=== PATIENT | male | born 1965 | race Caucasian/White ===

== ENCOUNTER 2021-08-05 00:36 | Observation (INO) | payer OTHER, SELFPAY ==
[2021-08-05] VITALS (17 sets, daily range): BP systolic 119–163; BP diastolic 69–83; PULSE 63–89; RESP 16–22; TEMP 36.2–37; O2SAT 95–100; BMI 38.4
--- NOTE | 2021-08-05 | ECHO_ITS ---
Patient Info Name: Mike Patterson Age: 55 years : 1965 Gender: Male Ht: 73 in Wt: 291 lbs BSA: 2.66 m2 HR: 62 bpm BP: 163 / 81 mmHg Heart Rhythm: Sinus Rhythm Technical Quality: Fair Exam Date: 08/05/2021 4:19 PM Exam Location: [facility] Pulmonary Exam Room: [facility] Patient Status: Inpatient Admit Date: 08/05/2021 Staff Ordering Physician: Tadeo Graf MD Wireless Construction Manager: Laurie Cabrera RDCS Attending Provider: Gilbert Moraes MD Exam Type: CA echo doppler color flow Study Info Indications - AFIB Complete two-dimensional, color flow and Doppler transthoracic echocardiogram is performed. Summary 1. Complete two-dimensional, color flow and Doppler transthoracic echocardiogram is performed. 2. Left ventricular systolic function is low normal, estimated at 50-55%. 3. Left ventricular chamber dimension is normal. 4. There is mildly increased left ventricular wall thickness. 5. The left ventricular diastolic function is normal. 6. Left atrial chamber dimension is mildly enlarged. 7. There is mild tricuspid valve regurgitation. 8. There is mild pulmonic regurgitation. Left Ventricle Left ventricular systolic function is low normal, estimated at 50-55%. Left ventricular chamber dimension is normal. There is mildly increased left ventricular wall thickness. The left ventricular diastolic function is normal. Right Ventricle Right ventricular chamber dimension is normal. Right ventricular systolic function is normal. Left Atria Left atrial chamber dimension is mildly enlarged. Right Atria Right atrial chamber dimension is normal. Atrial Septum Intact interatrial septum visualized by color flow imaging. Aortic Valve The aortic valve is trileaflet. There is mild aortic valve sclerosis. There is no aortic valve stenosis. There is trace aortic valve regurgitation. Pulmonic Valve The pulmonic valve is normal. There is no pulmonic valve stenosis. There is mild pulmonic regurgitation. Mitral Valve The mitral valve has normal leaflets. There is no mitral valve stenosis. There is trace mitral valve regurgitation. Tricuspid Valve The tricuspid valve leaflets are normal. There is no significant tricuspid valve stenosis. There is mild tricuspid valve regurgitation. No pulmonary hypertension, estimated pulmonary arterial systolic pressure is 28 mmHg. Pericardium/Pleural The pericardium appears normal. There is no pericardial effusion. Inferior Vena Cava Normal inferior vena cava with >50% collapse upon inspiration consistent with normal right atrial pressure, 10 mmHg. Aorta The aortic root size at the sinus of Valsalva is normal. Left Ventricular Outflow Tract Name Value Normal LVOT 2D LVOT Diameter 2.1 cm LVOT Doppler LVOT Peak Gradient 7 mmHg LVOT Mean Gradient 4 mmHg LVOT VTI 23 cm LVOT VTI/AV VTI Ratio 0.9 LVOT Stroke Volume 82 ml LVOT CO 19.5 l/min
--- NOTE | ~2021-08-05 | NM_ITS ---
EXAMINATION: NM ortega stress w perfusion DATE: 08/06/2021 10:06 INDICATION: Chest pain. TECHNIQUE: Rest images were obtained following intravenous administration of 10.1 mCi Tc99m tetrofosm in (Myoview). The patient was infused intravenously with Lexiscan (regadenoson). Then, 32.7 mCi Tc99m tetrofosmin (Myoview) was administered intravenously, and supine and prone stress images were obtain ed. Data was reconstructed into short axis and horizontal and vertical long axis SPECT images. Gated SPECT images were also obtained. COMPARISON: Chest CT 08/05/2021 FINDINGS: There is a small, mild, reversible perfusion defect involving apical anterior segment of le ft ventricle, consistent with ischemia. There is apical hypokinesis. Left ventricular ejection frac tion measures 46%. IMPRESSION: 1. Small area of mild ischemia involving apical anterior segment of left ventricle. 2. Apical hypokinesis with left ventricular ejection fraction measuring 46%. Reviewed, dictated and finalized at location A. MATION CONTROLS ENGINEER IMPRESSION: 1. Small area of mild ischemia involving apical anterior segment of left ventri iza. 2. Apical hypokinesis with left ventricular ejection fraction measuring 46%.
--- NOTE | ~2021-08-05 | XR_ITS ---
XR chest 2V DATE: 08/05/2021 01:17 INDICATION: Chest tightness, shortness of breath, palpitations TECHNIQUE: PA and lateral views COMPARISON: 01/10/2016 2 view chest FINDINGS: Normal heart size. No hilar or mediastinal enlargement. No pulmonary infiltrate or consolid ation, pleural effusion or pulmonary vascular congestion or pneumothorax. There is mild thoracic scoliosis. There is degenerative spurring of the thoracic spine. IMPRESSION: No active cardiopulmonary disease Reviewed, dictated and finalized at location A. ENT DEVELOPMENT DEAN
--- NOTE | ~2021-08-05 | CT_ITS ---
EXAMINATION: CTA chest PE protocol DATE: 08/05/2021 11:39 INDICATION: Chest pain. TECHNIQUE: Computed tomography angiography (CTA) of the chest was performed with 100 mL Omnipaque-350 intravenous contrast timed to evaluate the pulmonary arteries. Coronal maximum intensity projection 3D-reconstructions were created by the technologist. Automated exposure control and iterative reconst ruction technique were employed. The dose-length product was 929.24 mGy-cm. COMPARISON: None. FINDINGS: The lungs demonstrate mild atelectasis. No pleural effusion. The heart size is normal. No p ericardial effusion. The gallbladder is distended. There is no pulmonary embolus. There is mild thora cic spondylosis. IMPRESSION: 1. No pulmonary embolus. 2. Gallbladder distention, which may be secondary to fasting. Correlate with physical exam to exclude acute cholecystitis. Reviewed, dictated and finalized at location A. ERATIVE EXTENSION AGENT IMPRESSION: 1. No pulmonary embolus. 2. Gallbladder distention, which may be secondary to fasting. Correlate with ph ysical exam to exclude acute cholecystitis.
--- NOTE | ~2021-08-05 | US_ITS ---
EXAMINATION: US abdomen limited EXAM DATE: 08/06/2021 10:08 INDICATION: Distended gallbladder. TECHNIQUE: Multiple grayscale and Doppler images of the abdomen right upper quadrant were obtained (b y a technologist who performed the scan) and subsequently reviewed. Correlation is made to CT pulmona ry scan from yesterday. FINDINGS: The pancreatic head and body are normal in appearance. The pancreatic tail is not visualized. The l iver has normal echogenicity and contour. There are no focal liver lesions identified. There is no evidence of intrahepatic biliary duct dilation. Portal venous flow was seen in the hepatopedal, nor mal direction and has normal Doppler waveform. No right-sided hydronephrosis. Common bile duct measures 5 mm, which is normal. Gallbladder is moderately distended with wall measur ing 3 mm, borderline thickening. There are several gallstones identified. There is no focal region of nondependent echogenicity along the body of the gallbladder wall, could be some adherent gallbladder debris or stone, but can't exclude focal wall thickening. No pericholecystic fluid. Technologist per forming exam reports patient did not demonstrate sonographic Pimentel's sign. Please note that this si gn is less reliable in patients who have received pain medication. IMPRESSION: Distended gallbladder, cholelithiasis. Focal region of gallbladder wall thickening or adh erent debris. No sonographic Pimentel sign to suggest acute cholecystitis. Could consider 6 month follo w-up ultrasound, or if chronic cholecystitis is possibility a HIDA scan. Reviewed, dictated and finalized at location B. UTIVE ADVISOR IMPRESSION: Distended gallbladder, cholelithiasis. Focal region of gallbladder wall thickening or adherent debris. No sonographic Pimentel sign to suggest acute cholecystitis. Could consider 6 month follow-up ultrasound, or if chronic chol ecystitis is possibility a HIDA scan.
--- NOTE | 2021-08-05 00:40 | ECG_ITS ---
Measurements Intervals [place] Rate: 84 P: [place]: 0 QRS: 68 QRSD: 113 T: 44 QT: 343 QTc: 405 Interpretive Statements ATRIAL FIBRILLATION INTRAVENTRICULAR CONDUCTION DELAY DELAYED PRECORDIAL R/S TRANSITION BASELINE ARTIFACT- I, II, III, AVR, AVL, AVF, V1-V6 ABNORMAL ECG Electronically Signed On 08-05-2021 6:11:39 FLEET ADMINISTRATIVE ASSISTANT by Landon Pineda D.O.
[2021-08-05] MEDS: ASPIRIN 81 MG CHEWABLE TABLET 324 MG PO (00:49)
[2021-08-05 00:54] LABS: Basophils Absolute Auto 0.1 K/mm3 (0.0-0.1); Basophils Percent Auto 0.9 % (0.2-1.2); Eosinophils Absolute Auto 0.2 K/mm3 (0-0.3); Eosinophils Percent Auto 2.9 % (0-4.4); Hemoglobin 18.3 g/dL (14.0-18.0); Immature Granulocyte Absolute 0.02 K/mm3 (0.00-0.031); Immature Granulocyte Percent A 0.3 % (0-0.5); Lymphocytes Absolute Auto 2.35 K/mm3 (0.9-3.2); Mean Corpuscular HGB Conc 33.9 g/dl (32-36); Mean Corpuscular Hemoglobin 32.1 pg (26-34); Mean Corpuscular Volume 94.7 fl (80-100); Mean Platelet Volume 10.3 fl (7.4-10.4); Monocytes Absolute Auto 0.7 K/mm3 (0.1-0.6); Monocytes Percent Auto 9.4 % (2.6-8.5); Neutrophils Absolute Auto 4.2 K/mm3 (1.3-6.7); Neutrophils Percent Auto 55.5 % (45.5-73.1); Platelet Count Result 219 k/mm3 (150-375); Red Cell Distribution Width 13.9 % (11.5-14.5); White Blood Count 7.6 K/mm3 (4.5-10.0)
[2021-08-05 01:03] LABS: Prothrombin Time 12.9 Seconds (11.1-14.7)
[2021-08-05 01:04] LABS: Partial Thromboplastin Time 28.1 SECONDS (22.3-36.8)
[2021-08-05 01:08] LABS: Anion Gap 10 mmol/L (8-16); Blood Urea Nitrogen 26 mg/dL (9-20); Calcium 9.1 mg/dL (8.4-10.2); Carbon Dioxide 27 mmol/L (22-30); Chloride 101 mmol/L (98-107); Estimated CRCL calculation 71 ml/min; Estimated Glomerular Filt Rate 48; Glucose 116 mg/dL (65-110); Potassium 4.2 mmol/L (3.4-5.0); Sodium 138 mmol/L (137-145)
[2021-08-05 01:21] LABS: Troponin I < 0.012 ng/mL (0.000-0.034)
--- NOTE | 2021-08-05 01:39 | ED.GENADULT ---
HPI - General Adult General Chief complaint: Chest Pain Stated complaint: heart palpitations, sob Time Seen by Provider: 08/05/21 00:45 History of Present Illness HPI narrative: Patient 55-year-old gentleman who presents the emergency department with chief complaint of palpitations and chest discomfort. The patient reports that he had no prior history of A. fib reports that about 3 days ago he started having some irregular beats of his heart and noticed today that he was having a fast heart rate and also noticed his heart rate was irregular. Patient reports that he was checking his blood pressure and the monitor told him that his heart rate was irregular. Patient states he had some tightness in his chest when this happens reports no prior stress test or cardiac cath. Related Data Home Medications Medication Instructions Recorded Confirmed albuterol sulfate 90 mcg/actuation 2 puff INHALATION Q4H PRN gm 09/12/19 06/19/21 aerosol inhaler fluticasone 100 mcg-salmeterol 50 1 puff INHALATION Q12H 09/12/19 06/19/21 mcg/dose blistr powdr for inhalation Allergies Allergy/AdvReac Type Severity Reaction Status Date / Time No Known Allergies Allergy Mild Verified 08/05/21 00:44 Review of Systems Review of Systems: A 10 system review of systems was completed on the patient and is negative except for what is stated in the HPI. Nursing and ancillary documentation was reviewed. [facility] Past Medical History Medical History Hirschsprung's disease Mixed hyperlipidemia Obesity (BMI 30.0-34.9) Prurigo nodularis Family History Family History Mother Patient's mother is Father Family history of cardiovascular disease Family history of cardiac disorder Family history of kidney disease Social History Social History Alcohol intake: current Exam Narrative: GENERAL: Well-appearing, well-nourished, and in no acute distress. HEAD: Normocephalic, atraumatic. EYES: PERRLA and EOMI. ENT: Nares clear, no rhinorrhea or epistaxis. Mucous membranes moist. NECK: Supple. CHEST: Clear to auscultation. No respiratory distress. HEART: Regular rate and rhythm. No murmur heard. Normal peripheral pulses. ABDOMEN: Soft, nontender, nondistended, normal active bowel sounds. EXTREMITIES: Normal range of motion. No edema. SKIN: Warm, dry, no rash. NEURO: No focal deficits. Alert and oriented x3. PSYCH: Normal mood and affect. Course Course Emergency Course: EKG is A. fib the rate of [address] elevation or ST depression Vital Signs Vital signs: Vital Signs Temperature 36.6 C 08/05/21 00:41 Pulse Rate 81 08/05/21 00:41 Respiratory Rate 18 08/05/21 00:41 Blood Pressure 163/79 H 08/05/21 00:41 Pulse Oximetry 99 08/05/21 00:41 Temperature 36.6 C 08/05/21 00:41 Pulse Rate 81 08/05/21 00:41 Respiratory Rate 18 08/05/21 00:41 Blood Pressure 163/79 H 08/05/21 00:41 Pulse Oximetry 99 08/05/21 00:41 Medical Decision Making Vital Signs Vital Signs: Vital Signs Temperature 36.6 C 08/05/21 00:41 Pulse Rate 81 08/05/21 00:41 Respiratory Rate 18 08/05/21 00:41 Blood Pressure 163/79 H 08/05/21 00:41 Pulse Oximetry 99 08/05/21 00:41 Temperature 36.6 C 08/05/21 00:41 Pulse Rate 81 08/05/21 00:41 Respiratory Rate 18 08/05/21 00:41 Blood Pressure 163/79 H 08/05/21 00:41 Pulse Oximetry 99 08/05/21 00:41 Lab Data Result diagrams: 08/05/21 00:46 08/05/21 00:46 Labs: Lab Results 08/05/21 08/05/21 08/05/21 Range/Units 00:46 00:46 00:46 WBC 7.6 (4.5-10.0) K/mm3 RBC 5.70 (4.6-6.20) M/mm3 Hgb 18.3 H (14.0-18.0) g/dL Hct 54.0 H (42.0-52.0) % MCV 94.7 (80-100) fl MCH 32.1 (26-34) pg MCHC 33.9 (32-3
--- NOTE | 2021-08-05 03:59 | ADMGEN ---
This patient, Mike Patterson, was admitted to IMU Room 205-01. Patient/family oriented to hospital policies and general routines including ID bracelet, bed and alarms, visiting hours, pain management, procedures, bathroom and other care routines, personal items, smoking policy, room service/diet, and visiting hours. Information on how to activate the Rapid Response Team has been discussed. Patient/Family are encouraged to report perceived risks to care and to ask questions if they do not understand what they are told or what they should do.
[2021-08-05 04:15] LABS: Troponin I < 0.012 ng/mL (0.000-0.034)
[2021-08-05 07:43] LABS: Troponin I < 0.012 ng/mL (0.000-0.034)
[2021-08-05] MEDS: ASPIRIN 81 MG CHEWABLE TABLET PO (08:50)
--- NOTE | 2021-08-05 14:58 | PM.IMHP ---
H&P: HPI History of Present Illness Date/Time: PATIENT WAS ADMITTED UNDER OBSERVATION STATUS 08/05/21 14:58 Chief Complaint: Chest pain Narrative: 55yo male with HTN and low testosterone here for chest pain. Patient recently has been exercising using a stair climber and lifting weights. He feels a hard beat when he is using the stair climber but no overt chest pain. He has lost about 30 lb over the past 6-12 months. He does have fluttering feeling in his chest intermittently over the past few years has noted that this is worsened over the past week. He did receive his Pfizer vaccine 2. One week ago and since that time has been feeling fatigued, shortness of breath with the fluttering in his chest. Last evening he became dyspnea on exertion with tachycardia walking back from the bathroom. His blood pressure was read as high but his heart rate was only 77. He developed chest pain localized to a small area in his substernal area that he felt like he pulled something . He has not worked out as for the past week or so. He denies any radiation to the chest pain. No nausea or vomiting. The pain came on at rest. The pain is not positional, palpable or pleuritic. He does not use create teen. He denies any calf pain or leg edema. He has never had a stress test or heart catheterization. He has no heart disease but does have asthma. He uses albuterol intermittently. He was using it every night up until May and now uses adjust as needed and his last use was a week ago. He does not use the Advair frequently but over the past week he has been using it almost daily. He rarely uses the Cialis. He is a lifelong nonsmoker. He does have a family history of early heart disease with his mother dying of a myocardial infarction at age 52 and his father having a heart transplant age 56. He does use testosterone injections once a week. He missed his last weeks dose because of his illness. Remainder review of systems was negative except he does complain of strong odor to his urine but no dysuria or hematuria. Because the chest pain patient presented to the emergency room for evaluation. Emergency room, his blood pressure was 163/79 otherwise he is hemodynamically stable. Hemoglobin was 18. His BUN was 26 and creatinine 1.5. Troponin x3 is negative. Chest x-ray was clear. EKG showed atrial fibrillation with controlled ventricular response with delayed transition. patient was admitted for further care. Patient converted to NSR this morning Review of Systems Review of Systems: All systems reviewed & are unremarkable except as noted in HPI and below PMFSH Past Medical History Medical History (Updated 08/07/21 @ 16:01 by Tadeo Graf MD) Attention-deficit hyperactivity disorder, unspecified type Hirschsprung's disease Low testosterone Mixed hyperlipidemia Obesity (BMI 30.0-34.9) ERNA (obstructive sleep apnea) Prurigo nodularis Rectal fissure Surgical History Surgical History (Updated 08/05/21 @ 15:08 by Tadeo Graf MD) History of partial colectomy Family History Family History Mother Patient's mother is Father Family history of cardiovascular disease Family history of cardiac disorder Family history of kidney disease Social History Social History (Updated 08/05/21 @ 15:09 by Tadeo Graf MD) Social History: Patient is lifelong nonsmoker. He rarely drinks alcohol. No drug use. He is . Lives at home with his 2 sons. He has a dog. Full code. He nominated his daughter to be the individual would make medical decisions for him if he is unable. Smoking status: Never smoker Alcohol intake: never Substance use: never Substance use type: does not use Spiritual care concerns: No Meds Home Medications and Allergies Home Medications Medication Instructions Recorded Confirmed Type giorgio
--- NOTE | 2021-08-05 15:12 | ECG_ITS ---
Measurements Intervals [place] Rate: 67 P: 69 MT: 227 QRS: 74 QRSD: 107 T: 49 QT: 355 QTc: 376 Interpretive Statements SINUS RHYTHM WITH FIRST DEGREE AV BLOCK DELAYED PRECORDIAL R/S TRANSITION ABNORMAL ECG Electronically Signed On 08-05-2021 16:32:35 HEDIS ABSTRACTOR by Landon Pineda D.O.
[2021-08-05] MEDS: SODIUM CHLORIDE 0.9% IV 1,000 ML 100 ML IV CONT (15:19)
[2021-08-05 15:33] LABS: Alanine Aminotransferase 84 U/L (4-50); Albumin Level 4.3 g/dL (3.5-5.1); Alkaline Phosphatase 65 U/L (38-126); Anion Gap 8 mmol/L (8-16); Aspartate Amino Transferase 58 U/L (17-59); Bilirubin,Total 0.7 mg/dL (0.2-1.3); Blood Urea Nitrogen 20 mg/dL (9-20); Calcium 9.1 mg/dL (8.4-10.2); Carbon Dioxide 26 mmol/L (22-30); Chloride 102 mmol/L (98-107); Estimated CRCL calculation 75 ml/min; Estimated Glomerular Filt Rate 52; Glucose 147 mg/dL (65-110); Potassium 4.7 mmol/L (3.4-5.0); Sodium 136 mmol/L (137-145)
[2021-08-05 15:50] LABS: Add Urine Microscopic? NO; Appearance Urine Clear (Clear); Bilirubin Urine Negative (Negative); Blood Urine Negative (Negative); Color Urine Straw (Yellow); Glucose Urine UA Negative (Negative); Ketones Urine Negative (Negative); Leukocyte Esterase Ur Negative LEU/UL (Negative); Nitrate Urine Negative (Negative); Protein Urine Negative (Negative); Specific Grav Ur 1.017 (1.001-1.035); Urobilinogen Urine Negative mg/dL (<2.0)
--- NOTE | 2021-08-05 16:11 | PM.CNCAR ---
Assessment and Plan Additional Plan This is a 55-year-old man with paroxysmal atrial fibrillation I believe he has been having symptoms of this arrhythmia for some time now. It has not however been previously diagnosed. It seems clear that he has some element of AV node dysfunction since when in atrial fibrillation he is not at all tachycardic. He is currently in sinus rhythm and is asymptomatic he also has some intermittent episodes of chest pain and risk factors for coronary disease primarily include hypertension and family history of premature coronary disease in his mother. At this time I would recommend anticoagulating him I am going to choose full dose of Xarelto. He will undergo an echocardiogram and a Lexiscan nuclear stress test that has already been ordered by the hospitalist. We see him in follow-up tomorrow and review those data and determine if any antiarrhythmic therapy other than modest dose of metoprolol is indicated. I do not hear any evidence on physical exam of series valve pathology. His hypertension is sleep apnea are his principal risk factors for atrial fibrillation. Timur Marin MD [facility] History of Present Illness History of Present Illness Consult date/time: 08/05/21 16:11 Consult reason: chest pain and atrial fibrillation Reason For Visit: New onset A Fib, Chest Pain Narrative: This is a 55-year-old man I am seeing this afternoon at the request of the hospitalist because of atrial fibrillation and chest pain. He says he is not known to have any cardiac problems prior to this. His medical problems prior to this include hypertension, low testosterone and sleep apnea. He has a local PCP who is to providing his medical care and he is also receiving testosterone supplement because of low testosterone levels. He states that he has been having occasional episodes of palpitations and irregularity of his heart rate for at least several months of not up to year. These episodes have not been particularly problematic or concerning to him but yesterday he had episodes that were more persistent and so he came to the emergency room. In addition to this he has been having episodes of chest pain that seem to be occurring apart from the sense of tachycardia or palpitations. He is not having any exertional chest pain typical of angina from what he tells me the chest pain episodes also be to be transient and self-limited. Upon arrival in the emergency room he was in atrial fibrillation with a heart rate in the mid 80s. He was hemodynamically stable he was then admitted to the hospital. He is currently in sinus rhythm and is asymptomatic at this time. The hospitalists have ordered a Lexiscan nuclear stress test for him to be done tomorrow. An echocardiogram has also been ordered but has yet to have been completed. In this setting we are seeing him in consultation. Review of Systems Constitutional: Constitutional: Reports no additional constitutional complaints Eyes: Eyes: Reports no additional eye complaints ENT: Reports system reviewed and no additional complaints, except as documented Cardiovascular: Cardiovascular: Reports as per HPI and Reports palpitations Respiratory: Respiratory: Reports no additional respiratory complaints Gastrointestinal: Gastrointestinal: Reports no additional gastrointestinal complaints Musculoskeletal: Musculoskeletal: Reports no additional musculoskeletal complaints Integumentary/Breasts: Skin/Breast: Reports system reviewed and no additional complaints, except as docu Neurologic: Reports system reviewed and no additional complaints, except as documented Endocrine: Endocrine: Reports no additional endocrine complaints Hematologic/Lymphatic: Hematologic/Lymphatic: Reports no additional hematologic/lymphatic complaints Allergic/Immunologic: Allergic/Immunologic: Reports no additional allergic/immunologic complaints [facility] Past Medical History Medical History (Updated 08/05/21 @ 15:0
[2021-08-05] MEDS: RIVAROXABAN 20 MG TABLET PO (17:26)
[2021-08-05] MEDS: METOPROLOL TARTRATE 12.5 MG TABLET PO (20:23)
--- NOTE | 2021-08-05 22:49 | PCRCNOTE ---
Window of time for administration has passed. See next scheduled administration.
[2021-08-06] VITALS (18 sets, daily range): BP systolic 114–148; BP diastolic 57–83; PULSE 57–92; RESP 16–22; TEMP 36.2–37.2; O2SAT 94–100
[2021-08-06] MEDS: SODIUM CHLORIDE 0.9% IV 1,000 ML 100 ML IV CONT (01:32)
[2021-08-06 05:14] LABS: Hematocrit 51.5 % (42.0-52.0); Hemoglobin 17.2 g/dL (14.0-18.0); Mean Corpuscular HGB Conc 33.4 g/dl (32-36); Mean Corpuscular Hemoglobin 31.5 pg (26-34); Mean Corpuscular Volume 94.3 fl (80-100); Mean Platelet Volume 10.4 fl (7.4-10.4); Platelet Count Result 203 k/mm3 (150-375); Red Blood Count 5.46 M/mm3 (4.6-6.20); White Blood Count 7.2 K/mm3 (4.5-10.0)
[2021-08-06 05:38] LABS: Alanine Aminotransferase 87 U/L (4-50); Albumin Level 4.2 g/dL (3.5-5.1); Alkaline Phosphatase 66 U/L (38-126); Anion Gap 6 mmol/L (8-16); Aspartate Amino Transferase 57 U/L (17-59); Bilirubin,Total 0.9 mg/dL (0.2-1.3); Blood Urea Nitrogen 18 mg/dL (9-20); Calcium 9.1 mg/dL (8.4-10.2); Carbon Dioxide 26 mmol/L (22-30); Chloride 101 mmol/L (98-107); Cholesterol 157 mg/dL (0-200); Estimated CRCL calculation 95 ml/min; Estimated Glomerular Filt Rate > 60; Glucose 96 mg/dL (65-110); HDL Direct 27 mg/dL; Potassium 4.3 mmol/L (3.4-5.0); Sodium 133 mmol/L (137-145); Triglycerides 207 mg/dL (<150)
[2021-08-06 05:49] LABS: LDL Cholesterol Direct 87 mg/dL
[2021-08-06] MEDS: SIMETHICONE 125 MG CHEW TAB PO (06:53)
--- NOTE | 2021-08-06 07:45 | PC.NURSE ---
Patient to NM for lexiscan stress test.
--- NOTE | 2021-08-06 08:30 | EST_ITS ---
Patient Info Name: Mike Patterson Age: 55 years : 1965 Gender: Male Ht: 73 in Wt: 291 lbs BSA: 2.66 m2 Exam Date: 08/06/2021 8:31 AM Exam Location: [facility] Stress Patient Status: Inpatient Admit Date: 08/05/2021 Staff Ordering Physician: Tadeo Graf MD Attending Provider: Gilbert Moraes MD Exercise Technologist: Queta Samuel RDCS Exercise Physician: Raheel Taylor MD Exam Type: CA stress ortega w NM Study Info Indications R07.89 - Other chest pain A regadenoson stress test was performed. Summary 1. Please correlate with nuclear medicine images, reported separately. 2. No abnormal ST-T wave changes with lexiscan. Protocol: Lexiscan Stress ECG Details Stage: REST Duration (min): 5 min : 20 sec HR (bpm): 64 SBP (mmHg): 132 DBP (mmHg): 85 Stage: REST Duration (min): 16 min : 10 sec HR (bpm): 72 SBP (mmHg): 132 DBP (mmHg): 85 Stage: STAGE 1 Duration (min): 1 min : 0 sec HR (bpm): 87 SBP (mmHg): 128 DBP (mmHg): 88 Stage: RECOVERY Duration (min): 1 min : 0 sec HR (bpm): 88 SBP (mmHg): 120 DBP (mmHg): 80 Stage: RECOVERY Duration (min): 2 min : 0 sec HR (bpm): 80 SBP (mmHg): 120 DBP (mmHg): 80 Stage: RECOVERY Duration (min): 3 min : 0 sec HR (bpm): 82 SBP (mmHg): 119 DBP (mmHg): 79 Stage: RECOVERY Duration (min): 3 min : 11 sec HR (bpm): 80 SBP (mmHg): 119 DBP (mmHg): 79 Rest HR: 72 bpm Peak HR: 95 bpm Rest Sys BP: 132 mmHg Peak Sys BP: 128 mmHg Max Pred HR: 164 bpm % Max Pred HR: 58 % Target HR: 139 bpm Max RPP: 12,160 bpm*mmHg Target HR Summary: Hemodynamic response to exercise was normal BP Response: Normal blood pressure response Termination Reason: Completed protocol Cardiac Symptoms: None Total Time: 1 min : 0 sec Rest [place] BP: 85 mmHg Peak [place] BP: 88 mmHg Total Dose: 0.4 mg Resting ECG Normal sinus rhythm - normal ECG. Stress ECG No abnormal ST/T wave changes with exercise. Arrhythmias None. Report Signatures
[2021-08-06 09:01] LABS: Hepatitis C Virus Antibody Negative (Negative)
--- NOTE | 2021-08-06 10:07 | PC.NURSE ---
Patient returned to room following testing.
--- NOTE | 2021-08-06 10:09 | PM.PNCARD ---
Progress Note: A&P Assessment and Plan (1) Essential (primary) hypertension: Code(s): I10 - Essential (primary) hypertension Status: Acute Assessment and Plan: Up and down. Continue irbesartan and low-dose metoprolol for now (2) Atrial fibrillation, new onset: Code(s): I48.91 - Unspecified atrial fibrillation Status: Acute Assessment and Plan: On rivaroxaban and now in sinus rhythm. (3) ERNA (obstructive sleep apnea): Code(s): G47.33 - Obstructive sleep apnea (adult) (pediatric) Status: Acute Assessment and Plan: Compliance to CPAP (4) Chest pain: Qualifiers: Chest pain type: unspecified Qualified Code(s): R07.9 - Chest pain, unspecified Code(s): R07.9 - Chest pain, unspecified Status: Acute Assessment and Plan: Stress test pending. Will discontinue aspirin since on full-dose anticoagulation (5) Mixed hyperlipidemia: Code(s): E78.2 - Mixed hyperlipidemia Status: Acute Subjective Date/time seen: 08/06/21 10:09 Interval history: 55-year-old admitted because of chest pain and atrial fibrillation Date of service 08/06/2021: Remains in sinus rhythm. Feels well. Seen in the stress lab. Denies any chest pain or shortness of breath. Review of Systems Constitutional: Constitutional: Reports no additional constitutional complaints Eyes: Eyes: Reports no additional eye complaints ENT: Reports system reviewed and no additional complaints, except as documented Cardiovascular: Cardiovascular: Reports as per HPI and Reports palpitations Respiratory: Respiratory: Reports no additional respiratory complaints Gastrointestinal: Gastrointestinal: Reports no additional gastrointestinal complaints Musculoskeletal: Musculoskeletal: Reports no additional musculoskeletal complaints Integumentary/Breasts: Skin/Breast: Reports system reviewed and no additional complaints, except as docu Neurologic: Reports system reviewed and no additional complaints, except as documented Endocrine: Endocrine: Reports no additional endocrine complaints and Reports palpitations Hematologic/Lymphatic: Hematologic/Lymphatic: Reports no additional hematologic/lymphatic complaints Allergic/Immunologic: Allergic/Immunologic: Reports no additional allergic/immunologic complaints Exam Const: General: comfortable and no acute distress Other: Pleasant obese white male no apparent distress visiting with his son when HENMT: Mouth: Yes moist mucous membranes Eyes: Sclera: sclerae normal Pupils: Equal, round and reactive pupils present Neck: Neck: supple and no JVD Resp: Effort & Inspection: normal respiratory effort Auscultation: clear to auscultation bilaterally Cardio: Rate: regular rate Rhythm: regular rhythm Other: PMI is nondisplaced no audible murmur gallop or rub GI: Auscultation: normal bowel sounds Skin: General skin exam: normal color Neuro: Cranial nerves: Yes Equal, round and reactive pupils present Cognition (Neuro): normal cognition Extrem: General: normal to inspection Objective Data Vital Signs Vital Signs: Vital Signs - 24 hr 08/05/21 12:00 08/05/21 14:00 08/05/21 16:00 Temperature 36.8 C 37.0 C Pulse Rate 70 73 67 Respiratory Rate 18 18 Blood Pressure 162/83 H 163/81 H Pulse Oximetry 95 95 08/05/21 18:00 08/05/21 20:00 08/05/21 20:23 Temperature 36.2 C L Pulse Rate 71 66 63 Respiratory Rate 22 H Blood Pressure 151/70 H Pulse Oximetry 98 08/05/21 22:00 08/05/21 22:48 08/05/21 23:12 Temperature 36.2 C L Pulse Rate 64 65 73 Respiratory Rate 16 22 H Blood Pressure 119/76 Pulse Oximetry 97 100 08/06/21 00:00 08/06/21 02:00 08/06/21 02:03 Temperature Pulse Rate 81 66 73 Respiratory Rate 16 Blood Pressure Pulse Oximetry 98 08/06/21 03:10 08/06/21 04:00 08/06/21 06:00 Temperature 36.3 C L Pulse Rate 76 64 61 Respiratory Rate 22 H Blood Pressure 11
[2021-08-06] MEDS: METOPROLOL TARTRATE 12.5 MG TABLET PO ×2 (10:17→20:35)
[2021-08-06] MEDS: ASPIRIN 81 MG ENTERIC TABLET PO (10:17)
--- NOTE | 2021-08-06 11:22 | PM.IMPN ---
Progress Note: A&P Assessment and Plan (1) Chest pain: Qualifiers: Chest pain type: unspecified Qualified Code(s): R07.9 - Chest pain, unspecified Code(s): R07.9 - Chest pain, unspecified Status: Acute Assessment and Plan: Chest pain atypical and occurring at rest. Troponins are negative. EKG showing no acute ischemic changes. Chest x-ray is clear. Patient does have significant family history and some risk factors for coronary disease (HTN, untreated HLD, Test therapy). Lexiscan stress test today showing normal EKG portion with peak HR at 95 (58% max predicted HR). Nuclear images showing small, reversible perfusion defect involving apical anterior segment of left ventricle with apical HK and EF 46% consistent with ischemia. Xarelto held. Full dose ASA resumed. Continue metoprolol. Add Lipitor. (2) Atrial fibrillation, new onset: Code(s): I48.91 - Unspecified atrial fibrillation Status: Acute Assessment and Plan: EKG showed new onset atrial fibrillation. Rate controlled. [id number] is 1. TSH normal. Discussed risks versus benefits of anticoagulation. He has converted to NSR and is maintaining NSR. We added metoprolol. Cardiology consulted. Echo showing EF 50-55% with mildly increase in LV wall thickness and mild valvular disease. Patient does have polycythemia probably related to his testosterone which is a risk factor for VTE but CTA negative for PE. He was on full dose ASA but changed to Xarelto yesterday. Xarelto currently on hold for planned LHC. Continue tele. (3) Renal insufficiency: Code(s): N28.9 - Disorder of kidney and ureter, unspecified Status: Acute Assessment and Plan: Creatinine 1.5 on admission. Testosterone can increase body muscle which in turn can contribute to elevated creatinine. He denies that he takes Creatine. He was started on IV fluids and testosterone held. Cr better at 1.1 today. Continue to follow. Stop IV fluids. Continue to hold irbesartan. (4) Mixed hyperlipidemia: Code(s): E78.2 - Mixed hyperlipidemia Status: Acute Assessment and Plan: Patient not on statin therapy. LFTs okay except for isolated ALT elevation. HepC Ab screen negative. RUQ US showing cholelithiasis with distended GB but no evidence of acute cholecystitis and no pain on exam. TG 207, TC 157, LDL 87 and HDL 27. Add Lipitor. (5) Essential (primary) hypertension: Code(s): I10 - Essential (primary) hypertension Status: Acute Assessment and Plan: Blood pressure elevated on admission but better controlled now. Irbesartan on hold. Continue metoprolol. (6) Attention-deficit hyperactivity disorder, unspecified type: Code(s): F90.9 - Attention-deficit hyperactivity disorder, unspecified type Status: Acute Assessment and Plan: Stable mood and affect. Continue Concerta (ok to take from home) (7) ERNA (obstructive sleep apnea): Code(s): G47.33 - Obstructive sleep apnea (adult) (pediatric) Status: Acute Assessment and Plan: Stable. Continue CPAP. (8) Low testosterone: Code(s): R79.89 - Other specified abnormal findings of blood chemistry Status: Acute Assessment and Plan: On replacement therapy but with polycythemia and elevated Cr felt related to the testosterone therapy. Continue to hold testosterone. (9) DVT prophylaxis: Code(s): Z29.9 - Encounter for prophylactic measures, unspecified Status: Acute Assessment and Plan: Lovenox Subjective Date/time seen: 08/06/21 11:22 Interval history: 55yo male with HTN and low testosterone here for chest pain. No issues overnight. No further chest pain. No Shortness of breath. Has been made aware of the abnormal stress test by Cardiology and the need for LHC. Exam Narrative: AF 97.1 122/67 69 22 99% RA Gen - NARD Chest - lungs are clear to auscultation bilaterally
[2021-08-06] MEDS: ATORVASTATIN 40 MG TABLET PO (13:22)
[2021-08-06] MEDS: FLUTICASONE/SALMETEROL 45-21 MCG INHALER 1 PUFF 2 PUFF INHALATION (22:20)
[2021-08-07] VITALS (20 sets, daily range): BP systolic 126–150; BP diastolic 62–89; PULSE 62–84; RESP 16–22; TEMP 36.1–36.8; O2SAT 95–100
[2021-08-07 05:08] LABS: Hematocrit 51.6 % (42.0-52.0); Hemoglobin 17.3 g/dL (14.0-18.0); Mean Corpuscular HGB Conc 33.5 g/dl (32-36); Mean Corpuscular Hemoglobin 31.5 pg (26-34); Mean Corpuscular Volume 93.8 fl (80-100); Mean Platelet Volume 10.5 fl (7.4-10.4); Platelet Count Result 192 k/mm3 (150-375); Red Cell Distribution Width 13.9 % (11.5-14.5); White Blood Count 6.9 K/mm3 (4.5-10.0)
[2021-08-07 05:24] LABS: Anion Gap 8 mmol/L (8-16); Blood Urea Nitrogen 19 mg/dL (9-20); Calcium 9.6 mg/dL (8.4-10.2); Carbon Dioxide 28 mmol/L (22-30); Chloride 102 mmol/L (98-107); Estimated CRCL calculation 87 ml/min; Estimated Glomerular Filt Rate > 60; Glucose 101 mg/dL (65-110); Magnesium 1.6 mg/dL (1.6-2.3); Potassium 4.1 mmol/L (3.4-5.0); Sodium 138 mmol/L (137-145)
[2021-08-07] MEDS: METOPROLOL TARTRATE 12.5 MG TABLET PO (08:23)
[2021-08-07] MEDS: ATORVASTATIN 40 MG TABLET PO (08:24)
[2021-08-07] MEDS: ASPIRIN 325 MG ENTERIC TABLET PO (08:24)
[2021-08-07] MEDS: FLUTICASONE/SALMETEROL 45-21 MCG INHALER 1 PUFF 2 PUFF INHALATION (10:13)
--- NOTE | 2021-08-07 10:29 | WPDMODSED ---
Moderate Sedation Note-Pt Data Patient Data Diagnosis: paroxysmal atrial fibrillation newly diagnosed atypical chest pain abnormal nuclear stress test Present Complaint: none Procedure to be performed/Plan: left heart catheterization Allergies Allergy/AdvReac Type Severity Reaction Status Date / Time No Known Allergies Allergy Mild Verified 08/05/21 00:44 Home Medications Medication Instructions Recorded Confirmed Type albuterol sulfate 90 mcg/actuation 2 puff INHALATION Q4H PRN gm 09/12/19 08/05/21 History aerosol inhaler fluticasone 100 mcg-salmeterol 50 1 puff INHALATION Q12H 09/12/19 08/05/21 History mcg/dose blistr powdr for inhalation testosterone enanthate 75 mg/0.5 75 mg SUB-Q WEEKLY #6 ml 03/01/21 08/05/21 Rx mL subcutaneous auto-injector tadalafil 20 mg tablet 20 mg PO DAILY PRN #27 tablet 05/23/21 08/05/21 Rx methylphenidate HCl 54 mg 54 mg PO QAM #30 tablet 07/22/21 08/05/21 Rx tablet,extended release 24 hr irbesartan 300 mg PO DAILY 08/05/21 08/05/21 History Current Medications: Active Medications Aspirin (Aspirin 325 Mg Enteric Tablet) 325 mg PO QAM [facility] Last Admin: 08/07/21 08:24 Dose: 325 mg Documented by: Atorvastatin Calcium (Atorvastatin 40 Mg Tablet) 40 mg PO DAILY [facility] Last Admin: 08/07/21 08:24 Dose: 40 mg Documented by: Irbesartan (Irbesartan 150 Mg Tablet) 300 mg PO DAILY [facility] Metoprolol Tartrate (Metoprolol Tartrate 12.5 Mg Tablet) 12.5 mg PO Q12HR [facility] Last Admin: 08/07/21 08:23 Dose: 12.5 mg Documented by: Non-Formulary Medication (Methylphenidate Hcl [Concerta]) 54 mg PO QAM [facility] Stop: 09/05/21 08:59 Rivaroxaban (Rivaroxaban 20 Mg Tablet) 20 mg PO DAILY@1700 [facility] Last Admin: 08/05/21 17:26 Dose: 20 mg Documented by: Fluticasone/Salmeterol (Fluticasone/Salmeterol 45-21 Mcg Inhaler 1 Puff) 2 puff INHALATION Q12HRT [facility] Last Admin: 08/07/21 10:13 Dose: 2 puff Documented by: Sedation/Anesthesia: No previous sedation/anesthesia problems (including family history). [facility] Past Medical History Medical History (Updated 08/05/21 @ 15:08 by Tadeo Graf MD) Attention-deficit hyperactivity disorder, unspecified type Hirschsprung's disease Low testosterone Mixed hyperlipidemia Obesity (BMI 30.0-34.9) ERNA (obstructive sleep apnea) Prurigo nodularis Rectal fissure Surgical History Surgical History (Updated 08/05/21 @ 15:08 by Tadeo Graf MD) History of partial colectomy Family History Family History Mother Patient's mother is Father Family history of cardiovascular disease Family history of cardiac disorder Family history of kidney disease Social History Social History (Updated 08/05/21 @ 15:09 by Tadeo Graf MD) Social History: Patient is lifelong nonsmoker. He rarely drinks alcohol. No drug use. He is . Lives at home with his 2 sons. He has a dog. Full code. He nominated his daughter to be the individual would make medical decisions for him if he is unable. Smoking status: Never smoker Alcohol intake: never Substance use: never Substance use type: does not use Spiritual care concerns: No Mod Sed Physical Exam Physical Exam Pre Procedural Exam: Normal: Neck, Throat, Airway, Lungs, Heart Size, Heart Rate, Heart Rhythm, Neuro Exam and Extremities and Variation: Appearance ( obese man in no distress) Hours since solid foods: 12 Hours since liquid intake: 12 Mallampati Classification: class II Internal Medicine - PN: Obj Da Vital Signs Vital Signs: Vital Signs - 24 hr 08/06/21 12:00 08/06/21 14:00 08/06/21 16:00 Temperature 36.9 C 37.2 C Pulse Rate 69 68 73 Respiratory Rate 18 20 Blood Pressure 141/83 H 148/80 H Pulse Oximetry 98 94 08/06/21 18:00 08/06/21 20:00 08/06/21 20:35 Temperature 36.2 C L Pulse Rate 78 70 78 Respiratory Rate 20 Blood Pressure 143/81 H Pulse Oximetry 97
--- NOTE | 2021-08-07 11:16 | WPDCARDPROC ---
Cardiac Cath Procedure Note Date of procedure:: 08/07/21 Performing physician:: Timur Marin MD Indication:: paroxysmal atrial fibrillation atypical chest pain abnormal nuclear stress test Brief clinical history:: this is a 55-year-old man with hypertension and sleep apnea who presents with paroxysmal atrial fibrillation. He also has a history of chest pain that is atypical clinically of a angina. He is currently in sinus rhythm and a nuclear stress test yesterday was interpreted as showing anteroapical ischemia. Procedure Procedure performed:: Left ventriculogram coronary angiogram Angio-Seal to right femoral artery Sedation/Medication given:: fentanyl 50 mg Versed 2 mg case start time 10:56 a.m. case end time 11:12 a.m. sedation provided by Lisset Lindsay RN, trained observer Access site:: right femoral artery Estimated blood loss:: 15 cc Procedure note:: patient was brought to the cardiac catheterization lab in the postabsorptive state the right femoral triangle was prepared and draped in the usual fashion. Anesthesia was provided with 1% lidocaine infiltrated locally. Using the modified Seldinger technique a 5 Cypriot sheath was placed into the right femoral artery. Following this left heart catheterization was carried out. Initially a 5 Cypriot angled pigtail catheter was used to inject the left ventricle in the ADKINS projection and record left-sided hemodynamics. This catheter was then withdrawn. A 5 Cypriot FL4 catheter was used to engage and inject the left coronary artery in multiple projections. After this 5 Cypriot JR4 catheter was used to engage and inject the right coronary artery. Procedure was then terminated an angiogram was done of the femoral artery through the sheath after which a 6 Cypriot Angio-Seal device was deployed with a good hemostatic result. The present patient tolerated procedure well there were no apparent complications. He left the geophysical laboratory director with no evidence of a groin hematoma. Findings:: Hemodynamics: Central aortic pressure is 1 40 over 84 left ventricle 140/0 end-diastolic 18. There is no systolic gradient upon pullback across the aortic valve. Left ventricle: The LV is normal size. There is mild global systolic hypocontractility I estimated the global ejection fraction to be about 45%. The left main coronary artery is normal the left anterior descending is a moderate caliber artery extending down to around the apex. The LAD and its branches are free of disease.\ The circumflex is a moderate caliber artery giving rise to the marginal branches the circumflex system and its branches are smooth and angiographically free of disease. The right coronary artery is large in caliber and dominant to the posterior circulation the right coronary artery is smooth and free of disease. Conclusion:: 1. Right coronary dominant circulation with no evidence of coronary disease 2. mild global jugular systolic dysfunction ejection fraction 45%( possibly related to atrial fibrillation) 3. false-positive stress test 4. nonischemic chest pain Timur Marin MD [facility]
[2021-08-07] MEDS: SODIUM CHLORIDE 0.9% IV 1,000 ML 125 ML IV CONT (14:11)
--- NOTE | 2021-08-07 15:46 | PM.DS ---
DS: Admitting Diagnosis Discharge Date 08/07/21 Admitting Diagnosis Chest pain DS: Discharge Diagnosis Discharge Diagnosis (1) Chest pain: Qualifiers: Chest pain type: unspecified Qualified Code(s): R07.9 - Chest pain, unspecified Code(s): R07.9 - Chest pain, unspecified Status: Acute Assessment and Plan: Because of the chest pain, patient presented to the emergency room for evaluation. In the Emergency room, he is hemodynamically stable. Hemoglobin was 18. His BUN was 26 and creatinine 1.5. Troponin x3 is negative. Chest x-ray was clear. EKG showed atrial fibrillation with controlled ventricular response with delayed transition. Patient was admitted for further care. Patient converted to NSR. Chest pain was atypical and occurring at rest. Troponins were negative. Patient does have significant family history and some risk factors for coronary disease so consider ischemia. We proceeded with the Lexiscan stress test. Lexiscan stress test showed normal EKG portion with peak HR at 95 (58% max predicted HR). Nuclear images showing small, reversible perfusion defect involving apical anterior segment of left ventricle with apical HK and EF 46% consistent with ischemia. Xarelto was held and he went for a [facility] today. The left heart catheterization showed no significant coronary disease but did show EF 45%. It was felt that the stress test was a false positive and that the patient was having nonischemic chest pain. (2) Atrial fibrillation, new onset: Code(s): I48.91 - Unspecified atrial fibrillation Status: Acute Assessment and Plan: EKG showed new onset atrial fibrillation. Rate controlled. [id number]-Vtea is 1. TSH normal. He converted to NSR. We added metoprolol. Cardiology consult. Echo showing EF 50-55% with mildly increase in LV wall thickness and mild valvular disease. Patient does have polycythemia probably related to his testosterone which is a risk factor for VTE but CTA negative for PE. He was on full dose ASA but changed to Xarelto. Risks and benefits of anticoagulation were discussed in detail. (3) LV dysfunction: Code(s): I51.9 - Heart disease, unspecified Status: Acute Assessment and Plan: As above. It was felt that the mild global systolic dysfunction was related to the atrial fibrillation. Continue beta-rin. Resume irbesartan at half the dose. (4) Renal insufficiency: Code(s): N28.9 - Disorder of kidney and ureter, unspecified Status: Acute Assessment and Plan: Creatinine 1.5 on admission. Testosterone can increase body muscle which in turn can contribute to elevated creatinine. He denies that he takes Creatine. He was started on IV fluids and testosterone held. Cr better at 1.2 today. (5) Mixed hyperlipidemia: Code(s): E78.2 - Mixed hyperlipidemia Status: Acute Assessment and Plan: Patient not on statin therapy. LFTs okay except for isolated ALT elevation. HepC Ab screen negative. RUQ US showing cholelithiasis with distended GB but no evidence of acute cholecystitis and no pain on exam. TG 207, TC 157, LDL 87 and HDL 27. Patient already on a diet and exercise plan to be resumed after he sees his doctor. (6) Essential (primary) hypertension: Code(s): I10 - Essential (primary) hypertension Status: Acute Assessment and Plan: Blood pressure elevated on admission. We added beta rin. Resume irbesartan but at half the dose. (7) Attention-deficit hyperactivity disorder, unspecified type: Code(s): F90.9 - Attention-deficit hyperactivity disorder, unspecified type Status: Acute Assessment and Plan: Stable mood and affect. We continued Concerta (8) ERNA (obstructive sleep apnea): Code(s): G47.33 - Obstructive sleep apnea (adult) (pediatric) Status: Acute Assessment and Plan: Stable. We continued CPAP. (9) Low testosterone
--- NOTE | 2021-08-07 16:49 | PC.NURSE ---
On 08/07/21, the student, Frank LEIJA [facility], provided care and completed [facility] documentation on this patient. I have reviewed the student's documentation and agree with the findings.
== END 2021-08-07 17:15 | disposition home or self-care (01) ==
LOC: ANHED 01:42 → ANHIMU 04:08
PROVIDERS: Internal Medicine Cardiovascular Disease; Admitting Provider Internal Medicine; Emergency Provider Emergency Medicine; PCP Family Medicine; Visit Provider Internal Medicine
PROC: 4A023N8 Measurement of Cardiac Sampling and Pressure, Bilateral, Percutaneous Approach (ICD-10-PCS; CPT 93453; principal; 2021-08-07 11:30)
DX: R07.9 Chest pain, unspecified (principal); I48.91 Unspecified atrial fibrillation; I11.9 Hypertensive heart disease without heart failure; R06.09 Other forms of dyspnea; J45.909 Unspecified asthma, uncomplicated; G47.33 Obstructive sleep apnea (adult) (pediatric); N28.9 Disorder of kidney and ureter, unspecified; E78.2 Mixed hyperlipidemia; F90.9 Attention-deficit hyperactivity disorder, unspecified type; R79.89 Other specified abnormal findings of blood chemistry
CPT/HCPCS: 36415; 71046; 71275; 76705; 78452; 80048; 80053; 80061; 80076; 81003; 83735; 84443; 84484; 85025; 85027; 85610; 85730; 86803; 93005; 93017; 93306; 93460; 94640; 96360; 96361; 99285; A9270; A9502; C1760; C1887; C1894; G0269; G0378; J1644; J2250; J2785; J3010; J7030; J7040; Q9967

== ENCOUNTER 2025-08-12 22:06 | Emergency (ER) | payer BC, SELFPAY ==
--- NOTE | 2025-08-12 22:14 | PC.NURSE ---
Pt presents to ED 5/10 midsternum pressure, and elevated BP. Per pt has been feeling anxious with a lot going on at home. Per pt has been taking it multiple times, pt takes losartan.
[2025-08-12 22:15] VITALS: BP 159/88; PULSE 80; RESP 19; O2SAT 97
--- NOTE | 2025-08-12 22:18 | ECG_ITS ---
Test Date: 2025-08-12 22:33:46 Measurements Intervals [place] Rate: 74 P: 29 MA: 204 QRS: 49 QRSD: 103 T: 54 QT: 369 QTc: 411 Interpretive Statements SINUS RHYTHM WITH OCCASIONAL VENTRICULAR PREMATURE COMPLEXES No previous ECG available for comparison Electronically Signed On 08-12-2025 22:58:02 [employer] by Toby Moura M.D.
[2025-08-12 22:31] VITALS: BP 139/77; PULSE 79; O2SAT 95
[2025-08-12 22:34] LABS: Hematocrit 43.8 % (42.0-52.0); Hemoglobin 15.1 g/dL (14.0-18.0); Immature Granulocyte Percent A 0.4 % (0-0.5); Lymphocytes Absolute Auto 2.34 K/mm3 (0.9-3.2); Mean Corpuscular HGB Conc 34.5 g/dl (32-36); Mean Corpuscular Hemoglobin 30.4 pg (26-34); Mean Corpuscular Volume 88.1 fl (80-100); Nucleated Red Blood Cells Absolute Auto 0.000 K/mm3 (0.0-0.012); Nucleated Red Blood Cells Perc 0.0 % (0.0-0.2); Platelet Count Result 190 k/mm3 (150-375); Red Blood Count 4.97 M/mm3 (4.6-6.20); White Blood Count 7.1 K/mm3 (4.5-10.0)
[2025-08-12 22:46] VITALS: BP 135/82; PULSE 78; O2SAT 95
[2025-08-12 22:51] LABS: Alanine Aminotransferase 42 U/L (6-50); Albumin Level 4.3 g/dL (3.5-5.1); Alkaline Phosphatase 66 U/L (38-126); Anion Gap 10 mmol/L (4-12); Aspartate Amino Transferase 41 U/L (17-59); Bilirubin,Total 0.7 mg/dL (0.2-1.3); Blood Urea Nitrogen 21 mg/dL (9-20); Calcium 9.3 mg/dL (8.4-10.2); Carbon Dioxide 24 mmol/L (22-30); Chloride 102 mmol/L (98-107); Estimated Glomerular Filt Rate > 60; Glucose 140 mg/dL (65-110); INR 1.1; Lipase 137 U/L (23-300); Potassium 3.9 mmol/L (3.4-5.0); Prothrombin Time 14.0 Seconds (11.1-14.7); Sodium 136 mmol/L (137-145); Total Protein 8.0 g/dL (6.3-8.2)
[2025-08-12 22:52] LABS: Partial Thromboplastin Time 26.7 Seconds (22.3-36.8)
[2025-08-12 23:00] LABS: Troponin I < 0.012 ng/mL (0.000-0.034)
--- OUTSIDE RECORDS SUMMARY | 2025-08-12 23:07 | XMS_ITS | Clinical Summary ---
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 1 Active tadalafiL (CIALIS) 20 mg tablet Take 1 tablet (20 mg total) by mouth daily as needed for erectile dysfunction Active calcium carb/D3/mag AA chelate (CALCIUM QRSM-M4-[id number] M RICKIE ORAL) Take by mouth Act stew metoprolol XL (TOPROL-XL) 25 mg extended release tabletIndication s:Paroxysmal atrial fibrillation (HCC) Take 1 tablet (25 mg total) by mouth daily 90 tablet 3 5 Active Active Problems Problem Noted Date Diagnosed Date Paroxysmal atrial fibrillation 11/19/2021 Surgical History Surgery Date Site/Laterality Comments CARDIAC CATHETERIZATION Medical History Medical History Date Comments Hypertension Sleep apnea Atrial fibrillation (HCC) Social History Tobacco Use Types Packs/Day Years Used Date Smoking Tobacco: Never Smokeless Tobacco: Never Sex and Gender Information Value Date Recorded Sex Assigned at Not on file Legal Sex Male 10:37 AM [employer] Gender Identity Not on file Sexual Orientation Not on file Last Filed Vital Signs Vital Sign Reading Time Taken Comments Blood Pressure 140/82 12/06/2024 2:16 PM CDT Pulse 88 12/06/2024 2:16 PM CDT Temperature 36.4 C (97.5 F) 09/11/2021 9:55 AM [employer] Respiratory Rate - - Oxygen Saturation 93% 12/06/2024 2:16 PM CDT Inhaled Oxygen Concentration - - Weight 142 kg (313 lb) 12/06/2024 2:16 PM CDT Height 185.4 cm (6' 1) 12/06/2024 2:16 PM CDT Body Mass Index 41.3 12/06/2024 2:16 PM CDT Plan of Treatment Health Maintenance Due Date Last Done Comments Colon Cancer Screening-Colonoscopy 1964 Depression Screening 1964 Hepatitis C Screening 1964 Prostate Cancer Screening-PSA 1964 Hepatitis B Screening 1982 Regular Well Visit/Exam 18-64 1982 Zoster Vaccine (1 of 2) 2014 Covid-19 Vaccine (3 - 2024-2 6 season) 2025 07/31/2021, 01/19/2021 Influenza Vaccine (#1) 2025 , 07/14/2019 DTaP/Tdap/Td Vaccine (2 - Td or Tdap) 12/19/2030 12/19/2020 Pneumococcal vaccine <65 Aged Out No longer eligible based on patient's age to complete this topic Insurance [employer] [facility] Care Teams Activity Therapist Relationship Specialty Start Date End Date Timur Blake MD PCP - General Family Medicine 08/13/21
--- NOTE | 2025-08-12 23:38 | ED.RECABL ---
HPI - Recheck/Abnormal Lab/Rx General Chief Complaint: Recheck/Abnormal Lab/Rx Stated Complaint: high BP Time Seen by Provider: 08/12/25 22:19 Source: patient Mode of arrival: ambulatory Limitations: no limitations History of Present Illness HPI narrative: This is a 59 year old male that presents to the ER for elevated blood pressure reading. Reports it was in the 150s at home. He does have history of hypertension. Reports he has been taking his blood pressure medication as prescribed. Reports he has had intermittent chest discomfort the last couple of days. No pain currently. His ex- is currently on hospice in his home and does not have much time left. Related Data Home Medications ?Medication ?Instructions ?Recorded ?Confirmed ?Last Taken ?Type cholecalciferol (vitamin D3) 10 10 mcg PO DAILY 05/05/25 05/05/25 Unknown History mcg (400 unit) capsule Allergies Allergy/AdvReac Type Severity Reaction Status Date / Time No Known Allergies Allergy Mild Verified 08/12/25 22:07 Review of Systems Review of Systems: All systems reviewed & are unremarkable except as noted in HPI and below PMFSH Past Medical History Medical History Low testosterone ERNA (obstructive sleep apnea) Rectal fissure Hirschsprung's disease Obesity (BMI 30.0-34.9) Prurigo nodularis Mixed hyperlipidemia Attention-deficit hyperactivity disorder, unspecified type Surgical History Surgical History History of partial colectomy Family History Family History Mother Patient's mother is Father Family history of cardiovascular disease Family history of cardiac disorder Family history of kidney disease Social History Social History Social History: Patient is lifelong nonsmoker. He rarely drinks alcohol. No drug use. He is . Lives at home with his 2 sons. He has a dog. Full code. He nominated his daughter to be the individual would make medical decisions for him if he is unable. Smoking status: Never smoker Alcohol intake: never Substance use: never Substance use type: does not use Spiritual care concerns: No Exam Narrative: GENERAL: Well-appearing, well-nourished, and in no acute distress. HEAD: Normocephalic, atraumatic. EYES: EOMI. CHEST: Clear to auscultation. No respiratory distress. No wheezes rales or rhonchi HEART: Regular rate and rhythm. No murmur heard. Normal peripheral pulses. ABDOMEN: Soft, nontender, nondistended, normal active bowel sounds. EXTREMITIES: Normal range of motion. No edema. SKIN: Warm, dry, no rash. NEURO: No focal deficits. Alert and oriented x3. PSYCH: Normal mood and affect Course Vital Signs Vital signs: Vital Signs Pulse Rate 80 08/12/25 22:15 Respiratory Rate 19 08/12/25 22:15 Blood Pressure 159/88 H 08/12/25 22:15 Pulse Oximetry 97 08/12/25 22:15 Pulse Rate 78 08/12/25 22:46 Respiratory Rate 19 08/12/25 22:15 Blood Pressure 135/82 08/12/25 22:46 Pulse Oximetry 95 08/12/25 22:46 MDM - Recheck/Abnormal Lab/Rx MDM Narrative Medical decision making narrative: Patient presents to the emergency department for elevated blood pressure readings at home. Blood pressure is currently 135/82. No symptoms at this time. Blood work and EKG without concerning findings. Patient updated on his workup. Instructions to continue to monitor his blood pressure at home and have follow-up with his PCP Differential Diagnosis Differential diagnosis: Likely other (hypertension, hypertensive urgency, stress, anxiety) Lab Data Attestation: I reviewed the patient's lab results. 08/12/25 22:26 08/12/25 22:26 Labs: Lab Results 08/12/25 Range/Units 22: WBC 7.1 (4.5-10.0) K/mm3 RBC 4.97 (4.6-6.20) M/mm3 Hgb 15.1 (14.0-18.0) g/dL Hct 43.8 (42.0-52.0) % MCV 88.1 (80-100) fl MCH 30.4 (26-34) pg MCHC 34.5 (32-36) g/dl RDW 13.1 (11.5-14.5) % Plt Count 190 (150-375) k/mm3 MPV 9.8 (7.4-10.4) fl Immature Gran % (Auto) 0.4 (0-0.5) % Neut % (Auto) 53.3 (45.5-73.1) % Lymph % (Auto) 32.9 (18.3-44.2) % [place] % (Auto) 9.1 H (2.6-8.5) % Eos % (Auto) 3.5 (0-4.4) % Baso % (Auto) 0.8 (0.2-1.2) % Lymph # (Auto) 2.34 (0.9-3.2) K/mm3 [place] # (Auto) 0.7 H (0.1-0.6) K/mm3 Eos # (Auto) 0.3 (0-0.3) K/mm3 Baso # (Auto) 0.1 (0.0-0.1) K/mm3 Abs Immat Gran (auto) 0.03 (0.00-0.031) K/mm3 Absolute Neuts (auto) 3.8 (1.3-6.7) K/mm3 Absolute Nucleated RBC 0.000 (0.0-0.012) K/mm3 Nucleated RBC % 0.0 (0.0-0.2) % PT 14.0 (11.1-14.7) Seconds INR 1.1 APTT 26.7 (22.3-36.8) Seconds Sodium 136 L (137-145) mmol/L Potassium 3.9 (3.4-5.0) mmol/L Chloride 102 (98-107) mmol/L Carbon Dioxide 24 (22-30) mmol/L Anion Gap 10 (4-12) mmol/L BUN 21 H (9-20) mg/dL Creatinine 1.01 (0.7-1.3) mg/dL Estim Creat Clear Calc Not Reportable Estimated GFR > 60 (59 - ) Glucose 140 H (65-110) mg/dL Calcium 9.3 (8.4-10.2) mg/dL Total Bilirubin 0.7 (0.2-1.3) mg/dL AST 41 (17-59) U/L ALT 42 (6-50) U/L Alkaline Phosphatase 66 (38-126) U/L Troponin I < 0.012 (0.000-0.034) ng/mL Total Protein 8.0 (6.3-8.2) g/dL Albumin 4.3 (3.5-5.1) g/dL Lipase 137 (23-300) U/L ECG Data EKG #1: ECG completion date: 08/12/25 EKG Interpretation: normal rate, sinus rhythm, no ST changes and normal QT Critical Care Time Critical Care Time Critical Care Time: No Discharge Plan Discharge Clinical Impression: Hypertension Qualifiers: Hypertension type: unspecified Qualified Code(s): I10 - Essential (primary) hypertension Patient Disposition: Home Condition: Stable Instructions: Hypertension (ED) Additional Instructions: Return to the emergency department if you experience fever, chest pain, shortness of breath, or any other symptoms that are concerning to you. Continue to monitor your blood pressure at home and take your blood pressure medication as prescribed Follow up with your primary care doctor Patient Language: [place] Prescriptions: No Action fluticasone propion-salmeterol [Advair Diskus] 100-50 mcg/dose blister with device 1 ea INHALATION Q12H Qty: 60 1RF metoprolol succinate 25 mg tablet extended release 24 hr 25 mg PO DAILY Qty: 90 0RF cholecalciferol (vitamin D3) 10 mcg (400 unit) capsule 10 mcg PO DAILY methylphenidate HCl [Concerta] 54 mg tablet extended release 24hr 54 mg PO QAM Qty: 30 0RF Rx Instructions: Fill in May methylphenidate HCl [Concerta] 54 mg tablet extended release 24hr 54 mg PO QAM Qty: 30 0RF Rx Instructions: Fill in June methylphenidate HCl [Concerta] 54 mg tablet extended release 24hr 54 mg PO QAM Qty: 30 0RF Rx Instructions: Fill in July irbesartan 300 mg tablet See Rx Instructions .ROUTE .COMPLEX Qty: 90 1RF Dose Instruction: TAKE 1 TABLET BY MOUTH EVERY DAY Rx Instructions: TAKE 1 TABLET BY MOUTH EVERY DAY Follow-up/Referrals: Timur Blake MD [Primary Care Provider, Family Practice]
[2025-08-12 23:55] VITALS: BP 147/94; PULSE 82; RESP 18; TEMP 36.6; O2SAT 96
== END 2025-08-13 00:05 | disposition home or self-care (01) ==
PROVIDERS: Student in an Organized Health Care Education/Training Program; Emergency Provider Physician Assistant; PCP Family Medicine
DX: I10 Essential (primary) hypertension (principal); E78.2 Mixed hyperlipidemia; G47.33 Obstructive sleep apnea (adult) (pediatric); F90.9 Attention-deficit hyperactivity disorder, unspecified type; I49.3 Ventricular premature depolarization; Z87.738 Personal history of other specified (corrected) congenital malformations of digestive system; Z90.49 Acquired absence of other specified parts of digestive tract; Z79.899 Other long term (current) drug therapy
CPT/HCPCS: 36415; 80053; 83690; 84484; 85025; 85610; 85730; 93005; 99284